=== PATIENT | female | born 1940 | race Caucasian/White ===

== ENCOUNTER 2024-10-24 05:25 | Inpatient (IN) ==
[2024-10-17 15:33] LABS: Appearance,Urine Cloudy (Clear); Bacteria,Urine Mod /hpf (0); Bilirubin,Urine Negative (Negative); Color,Urine Yellow; Glucose,Urine (UA) Negative (Negative); Ketones,Urine Negative (Negative); Leukocyte Esterase,Urine Large /uL (Negative); Nitrate,Urine Negative (Negative); Protein,Urine Negative (Negative); Urine Blood Small ery/mcL (Negative); Urine RBC 2 /hpf (0-3); Urine Squamous Epithelial Cell 0 /hpf (0-4); Urine WBC > 182 /hpf (0-4); Urobilinogen,Urine Normal
[2024-10-17 15:37] LABS: Basophils # (Auto) 0.04 K/mcL (0.00-0.30); Basophils % (Auto) 0.4 % (0.0-2.0); Eosinophils # (Auto) 0.19 K/mcL (0.00-0.70); Eosinophils % (Auto) 2.1 % (0.0-7.0); Hematocrit 39.1 % (34.1-44.9); Hemoglobin 12.5 g/dL (11.2-15.7); Lymphocytes # (Auto) 2.83 K/mcL (1.50-4.80); Lymphocytes % (Auto) 30.7 % (15.5-49.0); Mean Cell Volume 94.7 fL (80.0-100.0); Mean Platelet Volume 9.7 fL (8.8-12.5); Monocytes # (Auto) 0.83 K/mcL (0.10-0.90); Neutrophils % (Auto) 57.7 % (38.0-78.0); Platelet Count 424 K/mcL (140-440); RBC 4.13 M/mcL (3.59-5.38); Red Cell Distribution Width 13.6 % (11.5-14.5); WBC 9.2 K/mcL (4.5-11.0)
[2024-10-17 16:01] LABS: ALT/SGPT 10 U/L (<40); AST/SGOT 14 U/L (<32); Albumin 3.9 gm/dL (3.2-5.2); Albumin/Globulin Ratio 1.1 (1.0-2.3); Alkaline Phosphatase 119 U/L (39-117); Bilirubin,Total < 0.2 mg/dL (0.1-1.0); Blood Urea Nitrogen 13 mg/dL (8-23); Calcium 9.6 mg/dL (8.6-10.4); Carbon Dioxide 26 mmol/L (22-30); Chloride 101 mmol/L (96-108); Globulin 3.5 gm/dL (2.2-3.7); Glomerular Filtration Rate 84; Glucose 89 mg/dL (70-105); Potassium 4.1 mmol/L (3.3-5.1); Sodium 138 mmol/L (133-145)
[2024-10-17 22:06] LABS: Estimated Average Glucose(eAG) 111 mg/dL; Hemoglobin A1C 5.5 % Hgb (4.0-6.0)
[2024-10-24] MEDS ORDERED: SCOPOLAMINE 1 PATCH PATCH TOPICAL PRN (05:30)
[2024-10-24 06:18] LABS: Appearance,Urine Clear (Clear); Bilirubin,Urine Negative (Negative); Color,Urine Yellow; Glucose,Urine (UA) Negative (Negative); Ketones,Urine Negative (Negative); Leukocyte Esterase,Urine Small /uL (Negative); Nitrate,Urine Positive (Negative); Protein,Urine Negative (Negative); Urine Blood Trace-lysed ery/mcL (Negative); Urine RBC 0 /hpf (0-3); Urine Squamous Epithelial Cell 3 /hpf (0-4); Urine WBC 11 /hpf (0-4); Urobilinogen,Urine Normal
[2024-10-24] MEDS ORDERED: fentaNYL 100 MCG/2 ML VIAL ONE (10:46)
[2024-10-24] MEDS ORDERED: PROPOFOL 200 MG/20 ML VIAL IV ONE (10:46)
[2024-10-24] MEDS ORDERED: KETAMINE 50 MG/ML ML ONE ×2 (10:47→16:07)
[2024-10-24] MEDS ORDERED: GLYCOPYRROLATE 0.2 MG/ML VIAL IV ONE (10:48)
[2024-10-24] MEDS ORDERED: ONDANSETRON 4 MG/2 ML VIAL ONE (10:48)
[2024-10-24] MEDS ORDERED: LIDOCAINE 2% PF 5 ML VIAL ONE ×2 (10:48→16:08)
[2024-10-24] MEDS ORDERED: FAMOTIDINE/PF 20 MG/2 ML VIAL IV ONE (10:48)
[2024-10-24] MEDS ORDERED: TRANEXAMIC ACID 1,000 MG/10 ML VIAL ONE (10:48)
[2024-10-24] MEDS ORDERED: DEXAMETHASONE 10 MG/ML VIAL ONE (10:48)
[2024-10-24] MEDS ORDERED: MAGNESIUM SULFATE 2 GM/50 ML BAG IV ONE ×2 (10:49→16:08)
[2024-10-24] MEDS: ceFAZolin 2 GM in DEXTROSE 5% IN WATER 50 ML IV SCH ×2 (11:16→16:37)
[2024-10-24] MEDS ORDERED: PHENYLephrine 1 MG/10 ML SYRINGE (ANEST) ONE (11:49)
[2024-10-24] MEDS ORDERED: ePHEDrine 50 MG/5 ML SYRINGE (ANEST) IV ONE (12:31)
[2024-10-24] MEDS ORDERED: MEPERIDINE 25 MG/ML VIAL IV PRN (12:45)
[2024-10-24] MEDS ORDERED: NALOXONE HCL 0.4 MG/ML VIAL IV PRN (12:45)
[2024-10-24] MEDS ORDERED: LACTATED RINGERS 250 ML IV PRN (12:45)
[2024-10-24] MEDS ORDERED: IPRATROPIUM/ALBUTEROL 3 ML AMPUL.NEB NEB PRN (12:45)
[2024-10-24] MEDS ORDERED: BENZOCAINE/MENTHOL 1 LOZENGE PO PRN (12:45)
[2024-10-24] MEDS ORDERED: fentaNYL 100 MCG/2 ML VIAL IV PRN (12:45)
[2024-10-24] MEDS ORDERED: HYDROcodone/APAP 5/325MG TABLET PO PRN (15:30)
[2024-10-24] MEDS ORDERED: MAGNESIUM HYDROXIDE 30 ML ORAL.SUSP PO PRN (15:30)
[2024-10-24] MEDS ORDERED: FLEETS ADULT 1 DOSE ENEMA PR PRN (15:30)
[2024-10-24] MEDS ORDERED: POLYETHYLENE GLYCOL 3350 17 GM PACKET PO PRN (15:30)
[2024-10-24] MEDS ORDERED: BISACODYL 10 MG SUPP.RECT PR PRN (15:30)
[2024-10-24] MEDS: METHOCARBAMOL 1,000 MG/10 ML VIAL IV PRN (15:47)
[2024-10-24] MEDS: ACETAMINOPHEN 1,000 MG/100 ML BAG IV ONE (15:48)
[2024-10-24] MEDS: HYDROmorphone 0.5 MG/0.5 ML SYRINGE IV PRN (16:03)
[2024-10-24] MEDS: ONDANSETRON 4 MG/2 ML VIAL IV PRN (16:03)
[2024-10-24] MEDS ORDERED: MIDAZOLAM 2 MG/2 ML VIAL ONE (16:14)
[2024-10-24] MEDS: TRANEXAMIC ACID 1,000 MG/10 ML VIAL IV SCH (16:18)
[2024-10-24] MEDS: PREGABALIN 75 MG CAPSULE PO SCH (16:37)
[2024-10-24] MEDS: oxyCODONE 10 MG TAB.ER.12H PO SCH (16:37)
[2024-10-24] MEDS: LACTATED RINGERS 1,000 ML IV SCH (16:37)
[2024-10-24] MEDS: CELECOXIB 200 MG CAPSULE PO SCH (16:37)
[2024-10-24] MEDS: 0.45 % SODIUM CHLORIDE 1,000 ML IV SCH (17:28)
[2024-10-24] MEDS: morphine 4 MG/ML VIAL IV PRN (17:50)
[2024-10-24] MEDS: ceFAZolin 1 GM VIAL IV SCH (19:00)
[2024-10-24] MEDS ORDERED: oxyCODONE IR 5 MG TABLET PO PRN (19:09)
[2024-10-24] MEDS: DOCUSATE SODIUM 100 MG CAPSULE PO SCH (21:00)
[2024-10-24] MEDS ORDERED: SULFAMETHOXAZOLE/TRIMETHOPRIM 1 TABLET PO SCH (21:00)
[2024-10-24] MEDS: Dorzolamide-Timolol 22.3-6.8 mg/mL drops OS SCH (21:00)
[2024-10-24] MEDS: LATANOPROST OPHTH DROPS 2.5ML BOTTLE OU SCH (21:00)
[2024-10-24 21:29] LABS: Basophils # (Auto) 0.02 K/mcL (0.00-0.30); Basophils % (Auto) 0.1 % (0.0-2.0); Eosinophils # (Auto) 0.01 K/mcL (0.00-0.70); Eosinophils % (Auto) 0 % (0.0-7.0); Hematocrit 40.2 % (34.1-44.9); Lymphocytes # (Auto) 1.18 K/mcL (1.50-4.80); Lymphocytes % (Auto) 4.9 % (15.5-49.0); Mean Cell Volume 92.8 fL (80.0-100.0); Mean Corpuscular HGB Conc 32.3 g/dL (31.0-36.0); Mean Platelet Volume 9.2 fL (8.8-12.5); Monocytes # (Auto) 1.28 K/mcL (0.10-0.90); Monocytes % (Auto) 5.3 % (1.0-12.0); Neutrophils % (Auto) 89.5 % (38.0-78.0); Platelet Count 360 K/mcL (140-440); RBC 4.33 M/mcL (3.59-5.38); Red Cell Distribution Width 13.2 % (11.5-14.5); WBC 24.2 K/mcL (4.5-11.0)
[2024-10-24] MEDS: 0.9 % SODIUM CHLORIDE 10 ML SYRINGE IV SCH (22:00)
[2024-10-24] MEDS: PROMETHAZINE 25 MG TABLET PO PRN (22:02)
[2024-10-24] MEDS: SENNOSIDES 1 TABLET PO SCH (22:09)
[2024-10-24] MEDS: HYDROmorphone 1 MG/ML SYRINGE ONE (22:18)
[2024-10-24] MEDS: SULFAMETHOXAZOLE/TRIMETHOPRIM 1 TABLET PO SCH (22:27)
[2024-10-25] MEDS: HYDROmorphone 1 MG/ML SYRINGE IV PRN (03:07)
[2024-10-25] MEDS: LEVOTHYROXINE 88 MCG TABLET PO SCH (07:13)
[2024-10-25] MEDS: ONDANSETRON 4 MG/2 ML VIAL IV PRN (07:13)
[2024-10-25] MEDS: HYDROcodone/APAP 10/325MG TABLET PO PRN (11:57)
[2024-10-25] MEDS: KETOROLAC 15 MG/ML VIAL IV PRN (14:18)
[2024-10-25] MEDS: BENZOCAINE/MENTHOL 1 LOZENGE PO PRN (14:20)
[2024-10-26] MEDS: ENOXAPARIN 40 MG/0.4 ML SYRINGE SQ SCH (08:12)
[2024-10-26] MEDS: BENZOCAINE ONE 20% 1 SPRAY TOPICAL PRN (12:01)
[2024-10-26] MEDS: CALCIUM CARBONATE 500 MG TAB.CHEW CHEWED PRN (14:52)
[2024-10-26] MEDS: PANTOPRAZOLE 40 MG VIAL IV SCH (16:43)
[2024-10-27] MEDS: JOINT HEALTH PO SCH (12:10)
[2024-10-27 18:50] VITALS: TEMP 98.4
[2024-10-27 19:09] VITALS: O2SAT 98
== END 2024-10-27 19:40 | disposition short-term general hospital (02) | DRG 467 ==
LOC: MEDSUR 05:25
PROVIDERS: ADMIT Orthopaedic Surgery; ATTEND Orthopaedic Surgery